=== PATIENT | female | born 1960 | race Caucasian/White ===

== ENCOUNTER → 2016-08-11 | Outpatient (CLI) | payer OTHER ==
--- NOTE | 2016-08-11 10:16 | BD ---
EXAMINATION TYPE: MG DEXA axial skeleton. DATE OF EXAM: 08/11/2016 9:27 AM COMPARISON: NONE CLINICAL HISTORY: Postmenopausal female with history of breast cancer. Height: 62 IN Weight: 174 LBS FRAX RISK QUESTIONS: Alcohol (3 or more units per day): NO Family History (Parent hip fracture): NO Glucocorticoids (More than 3mos): NO (Ex: prednisone, prednisolone, methylprednisolone, dexamethasone, and hydrocortisone). History of Fracture in Adulthood: NO Secondary Osteoporosis: 1. Type 1 Diabetes: NO 2. Hyperthyroidism: NO 3. Menopause before 45: AGE 45 4. Malnutrition: NO 5. Chronic liver disease: NO Rheumatoid Arthritis: NO Current Tobacco Use: NO RISK FACTORS HISTORY OF: History of Wrist Fracture: YES RT WRIST When: AGE 16 Active: YES Postmenopausal woman: AGE 45 MEDICATIONS: Thyroid Medications: YES Which medication: LEVOXYL How Lon+ YRS Additional Medications: CALCIUM, VIT D, SIMVASTATIN, DICLOFENAC, CENTRUM, SILVER, VIT B, COQ10, FISH OIL, ASPIRIN Additional History: BREAST CANCER and post menopausal female EXAM MEASUREMENTS: Bone mineral densitometry was performed using the [employer] System. Bone mineral density as measured about the Lumbar spine is: ----- L1-L4(G/cm2): 1.310 T Score Values are as follows: ----- L2: 1.2 ----- L3: 1.1 ----- L4: 1.5 ----- L1-L4: 1.1 Bone mineral density BASELINE Bone mineral density about the R hip (g/cm2): 1.020 Bone mineral density about the L hip (g/cm2): 1.063 T Score values are as follows: -----R Neck: -0.1 -----L Neck: 0.2 -----R Intertrochanter: 0.6 -----L Intertrochanter: 0.7 Bone mineral density BASELINE IMPRESSION: Normal (Values between +1 and -1 indicate normal bone mass) NOTE: T-SCORE=SD OF THE YOUNG ADULT MEAN.
== END | disposition home or self-care (01) ==
LOC: RADBDWWP 09:23
PROVIDERS: ATTEND Obstetrics & Gynecology
DX: N95.1 Menopausal and female climacteric states (principal)
CPT/HCPCS: 77080

== ENCOUNTER → 2018-02-07 | Outpatient (CLI) | payer OTHER ==
--- NOTE | 2018-02-07 19:58 | US ---
EXAMINATION TYPE: US venous doppler duplex LE LT DATE OF EXAM: 02/07/2018 6:41 PM COMPARISON: NONE CLINICAL HISTORY: I82.529 Chronic embolism and thrombosis. History of left leg DVT on aspirin. SIDE PERFORMED: Left TECHNIQUE: The lower extremity deep venous system is examined utilizing real time linear array sonog tiana with graded compression, doppler sonography and color-flow sonography. VESSELS IMAGED: External Iliac Vein (EIV) Common Femoral Vein Deep Femoral Vein Greater Saphenous Vein * Femoral Vein Popliteal Vein Small Saphenous Vein * Proximal Calf Veins (* superficial vessels Left Leg: Negative for DVT. Femoral Vein is compressible and good color flow seen compared to previo us exam on 02/10/2016. IMPRESSION: No evidence of deep venous thrombosis in the left leg.
== END | disposition home or self-care (01) ==
LOC: RADUSMAIN 18:00
PROVIDERS: ATTEND Internal Medicine Hematology & Oncology
DX: I82.529 Chronic embolism and thrombosis of unspecified iliac vein (principal); Z88.6 Allergy status to analgesic agent; Z91.040 Latex allergy status; Z88.5 Allergy status to narcotic agent; Z91.048 Other nonmedicinal substance allergy status

== ENCOUNTER 2018-07-19 09:05 | Inpatient (IN) | payer OTHER ==
[2018-07-19] MEDS ORDERED: SODIUM CHLORIDE 0.9% 1,000 ML IV STA (09:24)
[2018-07-19] MEDS ORDERED: ASPIRIN 81 MG PO STA (09:24)
[2018-07-19] MEDS ORDERED: NITROGLYCERIN SL TABS 0.4 MG TAB SUBLINGUAL STA (09:24)
--- NOTE | 2018-07-19 09:28 | ED ---
General Adult HPI - General Chief complaint: Chest Pain Stated complaint: chest pain/High BP Time Seen by Provider: 07/19/18 09:24 Source: patient, RN notes reviewed Mode of arrival: ambulatory Limitations: no limitations - History of Present Illness Initial comments: Patient 58-year-old female presenting to the emergency room today with a chief complaint of chest pain on and off over the past week. She does admit that she was having episodes that lasted just a few seconds. She states that yesterday it seemed to stay and not go away. She states that she feels a tightness and heaviness on her chest. She feels like it is like one of her grandchildren sitting on top of her. Patient does admit that when she was at work today when around corners she also felt a little lightheaded. Patient denies any other complaints or symptoms. She does admit to a history of hypertension and breast cancer in the past. Patient does admit that she had a blood clot in the left leg in the past was on blood thinners for several years but is currently no longer on them. No longer takes a daily aspirin. Patient denies any recent fever, chills, shortness of breath, back pain, abdominal pain, nausea or vomiting, numbness or tingling, headaches or visual changes, or any other complaints. - Related Data Home Medications Medication Instructions Recorded Confirmed Ubidecarenone [Co Q-10] 100 mg PO DAILY 05/16/14 07/19/18 Atenolol [Tenormin] 12.5 mg PO DAILY 05/17/14 07/19/18 Aspirin EC [Ecotrin Low Dose] 81 mg PO DAILY 07/19/18 07/19/18 Calcium Carbonate [Calcium] 1,200 mg PO DAILY 07/19/18 07/19/18 Diclofenac Sodium 50 mg PO DAILY 07/19/18 07/19/18 Levothyroxine Sodium [Levoxyl] 100 mcg PO DAILY 07/19/18 07/19/18 Multivitamins, Thera [Multivitamin 1 tab PO DAILY 07/19/18 07/19/18 (formulary)] [place]-3 Fatty Acids/Fish Oil [Fish 1 cap PO DAILY 07/19/18 07/19/18 Oil 1,000 mg Softgel] Simvastatin [Zocor] 20 mg PO HS 01/11/19 01/11/19 Allergies Allergy/AdvReac Type Severity Reaction Status Date / Time aspirin Allergy Abdominal Verified 07/19/18 09:12 Pain iodine Allergy Rash/Hives Verified 07/19/18 09:12 Latex, Natural Rubber Allergy Rash/Hives Verified 07/19/18 09:12 morphine Allergy Hallucinati Verified 07/19/18 09:12 ons hydromorphone HCl AdvReac Hallucinati Verified 07/19/18 09:12 [From Dilaudid] ons Review of Systems ROS Statement: Those systems with pertinent positive or pertinent negative responses have been documented in the HPI. ROS Other: All systems not noted in ROS Statement are negative. Past Medical History Past Medical History: Hyperlipidemia, Hypertension, Thyroid Disorder Additional Past Medical History / Comment(s): breast cancer History of Any Multi-Drug Resistant Organisms: None Reported Past Surgical History: Breast Surgery, Hysterectomy Additional Past Surgical History / Comment(s): Bilateral mastectomy Past Anesthesia/Blood Transfusion Reactions: Previous Problems w/ Anesthesia Additional Past Anesthesia/Blood Transfusion Reaction / Comment(s): Hallucinations Past Psychological History: No Psychological Hx Reported Smoking Status: Former smoker Past Alcohol Use History: Occasional Past Drug Use History: None Reported - Past Family History Mother Family Medical History: Cancer, Thyroid Disorder Father Family Medical History: Coronary Artery Disease (CAD), Diabetes Mellitus, Myocardial Infarction ([place]) General Exam - General Exam Comments Initial Comments: General: The patient is awake and alert, in no distress, and does not appear acutely ill. Eye: There is normal conjunctiva bilaterally. No signs of icterus. Ears, nose, mouth and throat: There are moist mucous membranes and no oral lesions. Neck: The neck is supple, there is no tenderness or JVD. Cardiovascular: There is a regular rate and rhythm. No murmur, rub or gallop is appreciated. Respiratory: Lungs are clear to auscultation, respirations are non-labored, breath sounds are equal. No wheezes, stridor, rales, or rhonchi. Gastrointestinal: Soft, non-distended, non-tender abdomen without masses or organomegaly noted. There is no rebound or guarding present. No CVA tenderness. Musculoskeletal: Normal ROM, no tenderness. Radial pulses equal bilaterally 2+ . Neurological: A&O x 3. CN II-XII intact, There are no obvious motor or sensory deficits. Coordination appears grossly intact. Speech is normal. Skin: Skin is warm and dry and no rashes or lesions are noted. Psychiatric: Cooperative, appropriate mood & affect, normal judgment. Limitations: no limitations Course Vital Signs 07/19/18 09:09 Temperature 97.9 F Pulse Rate 87 Respiratory 20 Rate Blood Pressure 169/89 O2 Sat by Pulse 99 Oximetry EKG Findings - EKG Comments: EKG Findings:: EKG performed at 0927: Shows normal sinus rhythm at 83 bpm. ID interval 140. QRS 86. QT/QTC 386/453. No acute ST changes. Medical Decision Making - Medical Decision Making Patient reexamined at this time shows no signs of distress. She does admit to improvement of her chest pain after nitro given here in emergency room. Her blood work was reviewed and negative cardiac enzymes. EKG showing no acute changes. Patient currently pain-free. D-dimer was elevated. CT of the chest was performed and does show some mild artifact limiting exam but shows possible left upper lobe PE. Patient has been started on high-dose heparin will be admitted with consult cardiology. - Lab Data Result diagrams: 07/19/18 09:35 07/19/18 09:35 Lab Results 07/19/18 07/19/18 07/19/18 Range/Units 09:35 09:35 09:35 WBC 6.7 (3.8-10.6) k/uL RBC 4.82 (3.80-5.40) m/uL Hgb 14.2 (11.4-16.0) gm/dL Hct 42.0 (34.0-46.0) % MCV 87.2 (80.0-100.0) fL MCH 29.4 (25.0-35.0) pg MCHC 33.7 (31.0-37.0) g/dL RDW 13.8 (11.5-15.5) % Plt Count 362 (150-450) k/uL Neutrophils % 57 % Lymphocytes % 33 % Monocytes % 5 % Eosinophils % 2 % Basophils % 1 % Neutrophils # 3.8 (1.3-7.7) k/uL Lymphocytes # 2.2 (1.0-4.8) k/uL Monocytes # 0.3 (0-1.0) k/uL Eosinophils # 0.1 (0-0.7) k/uL Basophils # 0.0 (0-0.2) k/uL PT (9.0-12.0) sec INR (<1.2) APTT (22.0-30.0) sec D-Dimer (<0.60) mg/L FEU Sodium 142 (137-145) mmol/L Potassium 4.5 (3.5-5.1) mmol/L Chloride 109 H (98-107) mmol/L Carbon Dioxide 23 (22-30) mmol/L Anion Gap 10 mmol/L BUN 19 H (7-17) mg/dL Creatinine 0.54 (0.52-1.04) mg/dL Est GFR (CKD-EPI)AfAm >90 (>60 ml/min/1.73 sqM) Est GFR (CKD-EPI)NonAf >90 (>60 ml/min/1.73 sqM) Glucose 129 H (74-99) mg/dL Calcium 9.5 (8.4-10.2) mg/dL Magnesium 2.1 (1.6-2.3) mg/dL Total Bilirubin 0.5 (0.2-1.3) mg/dL AST 40 H (14-36) U/L ALT 49 (9-52) U/L Alkaline Phosphatase 81 (38-126) U/L Total Creatine Kinase 241 H (30-135) U/L CK-MB (CK-2) 5.4 H (0.0-2.4) ng/mL CK-MB (CK-2) Rel Index 2.2 Troponin I <0.012 (0.000-0.034) ng/mL Total Protein 7.6 (6.3-8.2) g/dL Albumin 4.4 (3.5-5.0) g/dL 07/19/18 Range/Units 09:35 WBC (3.8-10.6) k/uL RBC (3.80-5.40) m/uL Hgb (11.4-16.0) gm/dL Hct (34.0-46.0) % MCV (80.0-100.0) fL MCH (25.0-35.0) pg MCHC (31.0-37.0) g/dL RDW (11.5-15.5) % Plt Count (150-450) k/uL Neutrophils % % Lymphocytes % % Monocytes % % Eosinophils % % Basophils % % Neutrophils # (1.3-7.7) k/uL Lymphocytes # (1.0-4.8) k/uL Monocytes # (0-1.0) k/uL Eosinophils # (0-0.7) k/uL Basophils # (0-0.2) k/uL PT 10.3 (9.0-12.0) sec INR 1.0 (<1.2) APTT 24.9 (22.0-30.0) sec D-Dimer 1.28 H (<0.60) mg/L FEU Sodium (137-145) mmol/L Potassium (3.5-5.1) mmol/L Chloride (98-107) mmol/L Carbon Dioxide (22-30) mmol/L Anion Gap mmol/L BUN (7-17) mg/dL Creatinine (0.52-1.04) mg/dL Est GFR (CKD-EPI)AfAm (>60 ml/min/1.73 sqM) Est GFR (CKD-EPI)NonAf (>60 ml/min/1.73 sqM) Glucose (74-99) mg/dL Calcium (8.4-10.2) mg/dL Magnesium (1.6-2.3) mg/dL Total Bilirubin (0.2-1.3) mg/dL AST (14-36) U/L ALT (9-52) U/L Alkaline Phosphatase (38-126) U/L Total Creatine Kinase (30-135) U/L CK-MB (CK-2) (0.0-2.4) ng/mL CK-MB (CK-2) Rel Index Troponin I (0.000-0.034) ng/mL Total Protein (6.3-8.2) g/dL Albumin (3.5-5.0) g/dL Disposition Clinical Impression: Pulmonary embolus, left, Chest pain Disposition: ADMITTED IP TO THIS HOSP Condition: Stable Referrals: Cleveland Lindo MD [Primary Care Provider] - 1-2 days Time of Disposition: 12:44
[2018-07-19 10:11] LABS: Basophils % (A) 1 %; Eosinophils # (A) 0.1 k/uL (0-0.7); Eosinophils % (A) 2 %; HGB 14.2 gm/dL (11.4-16.0); Lymphocytes # (A) 2.2 k/uL (1.0-4.8); Lymphocytes % (A) 33 %; MCH 29.4 pg (25.0-35.0); MCHC 33.7 g/dL (31.0-37.0); MCV 87.2 fL (80.0-100.0); Mean Platelet Volume 6.5; Monocytes # (A) 0.3 k/uL (0-1.0); Monocytes % (A) 5 %; Neutrophils # (A) 3.8 k/uL (1.3-7.7); Neutrophils % (A) 57 %; Platelet Count 362 k/uL (150-450); RBC 4.82 m/uL (3.80-5.40); RDW 13.8 % (11.5-15.5); WBC 6.7 k/uL (3.8-10.6)
--- NOTE | 2018-07-19 10:13 | XR ---
EXAMINATION TYPE: XR chest 2V DATE OF EXAM: 07/19/2018 COMPARISON: 05/26/2014 HISTORY: Chest pain TECHNIQUE: Frontal and lateral views of the chest are obtained. FINDINGS: Skin folds overlie the anterior chest. There is no focal air space opacity, pleural effusi on, or pneumothorax seen. The cardiac silhouette size is within normal limits. The osseous structu res are intact. Mild multilevel degenerative changes of the spine are seen. IMPRESSION: No acute cardiopulmonary process.
[2018-07-19 10:17] LABS: ALT 49 U/L (9-52); AST 40 U/L (14-36); Albumin 4.4 g/dL (3.5-5.0); Alkaline Phosphatase 81 U/L (38-126); Anion Gap 10 mmol/L; Blood Urea Nitrogen 19 mg/dL (7-17); Calcium 9.5 mg/dL (8.4-10.2); Carbon Dioxide 23 mmol/L (22-30); Chloride 109 mmol/L (98-107); Glucose 129 mg/dL (74-99); Magnesium 2.1 mg/dL (1.6-2.3); Potassium 4.5 mmol/L (3.5-5.1); Sodium 142 mmol/L (137-145); Total Bilirubin 0.5 mg/dL (0.2-1.3); Total Protein 7.6 g/dL (6.3-8.2)
[2018-07-19 10:31] LABS: Partial Thromboplastin Time 24.9 sec (22.0-30.0); Prothrombin Time 10.3 sec (9.0-12.0)
[2018-07-19 10:33] LABS: Creatine Kinase 241 U/L (30-135)
[2018-07-19 10:46] LABS: Creatine Kinase MB 5.4 ng/mL (0.0-2.4); Troponin I <0.012 ng/mL (0.000-0.034)
[2018-07-19 10:59] LABS: D-Dimer 1.28 mg/L FEU (<0.60)
[2018-07-19] MEDS ORDERED: methylPREDNISolone SOD SUCCI 125 MG/2 ML VIAL IV STA (11:08)
[2018-07-19] MEDS ORDERED: FAMOTIDINE 20 MG/2 ML VIAL IV STA (11:08)
[2018-07-19] MEDS ORDERED: diphenhydrAMINE 50 MG/ML 1 ML VIAL IVP STA (11:08)
--- NOTE | 2018-07-19 12:34 | CT ---
EXAMINATION TYPE: CT angio chest DATE OF EXAM: 07/19/2018 12:17 PM COMPARISON: Chest x-ray 07/19/2018, CT scan 05/16/2014 HISTORY: Chest pain, hypertension CT DLP: 352.5 mGycm Automated exposure control for dose reduction was used. CONTRAST: CTA scan of the thorax is performed with IV Contrast, patient injected with 100 mL of Isovue 370, pul monary embolism protocol. . 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 Correlate clinically. Pleural-based density pos teriorly in the right lower lobe and additional areas of pleural thickening noted. No consolidative p neumonia. No pleural effusion or pneumothorax. MEDIASTINUM: There is extensive streak artifact limiting assessment of the proximal aorta. Maximal di mension is 3.7 cm compatible with ectasia or minimal aneurysmal dilation. Assessment for dissection t his region is nondiagnostic. Descending thoracic aorta of normal caliber. There also is marked limitation of the right pulmonary artery due to severe streak artifact. There is a small area of reduced attenuation within a left upper lobe pulmonary artery branch. Could not excl ude a small pulmonary embolism. OTHER: A small hiatal hernia is present. The breast are not included in field of view. There is susp ected bilateral double mastectomy with interval removal of saline filled breast implants noted. Hyper trophic and degenerative change of the spine noted. There is a right adrenal nodule measuring 1.2 cm and 10 Hounsfield units likely the basis of an adenoma. IMPRESSION: 1. [place] limited exam due to extensive streak artifact. Could not exclude a small pulmonary embolism within the left upper lobe branch vessel seen on sagittal image 111. Correlate clinically 2. COPD as discussed above.
[2018-07-19] MEDS ORDERED: HEPARIN SODIUM,PORCINE 5,000 UNIT/ML 1 ML VIAL IV STA (12:51)
[2018-07-19] MEDS ORDERED: SODIUM CHLORIDE 0.9% 1,000 ML IV ONE (12:54)
[2018-07-19] MEDS ORDERED: NITROGLYCERIN SL TABS 0.4 MG TAB SUBLINGUAL PRN (12:54)
[2018-07-19] MEDS: HEPARIN SOD,PORK IN 0.45% NACL 25,000 UNIT in 0.45% NACL 1 250ML.BAG IV SCH (13:32)
[2018-07-19 15:44] LABS: Creatine Kinase 198 U/L (30-135)
[2018-07-19 15:57] LABS: Creatine Kinase MB 4.3 ng/mL (0.0-2.4); Troponin I <0.012 ng/mL (0.000-0.034)
[2018-07-19] MEDS ORDERED: ONDANSETRON 4 MG/2 ML VIAL IVP PRN (17:37)
[2018-07-19] MEDS ORDERED: ACETAMINOPHEN TAB 325 MG TAB PO PRN (17:37)
[2018-07-19] MEDS: ATENOLOL 12.5 MG TAB PO SCH (19:04)
[2018-07-19] MEDS: ATORVASTATIN 10 MG TAB PO SCH (20:08)
[2018-07-19] MEDS: ALBUTEROL NEBULIZED 2.5 MG/3 ML INHALATION SCH (20:11)
[2018-07-19 22:34] LABS: Creatine Kinase 169 U/L (30-135)
[2018-07-19 22:47] LABS: Creatine Kinase MB 3.3 ng/mL (0.0-2.4); Troponin I <0.012 ng/mL (0.000-0.034)
[2018-07-20 05:06] LABS: HCT 39.7 % (34.0-46.0); HGB 12.2 gm/dL (11.4-16.0); MCH 27.8 pg (25.0-35.0); MCHC 30.8 g/dL (31.0-37.0); MCV 90.1 fL (80.0-100.0); Mean Platelet Volume 5.9; Platelet Count 354 k/uL (150-450); RBC 4.41 m/uL (3.80-5.40); RDW 13.8 % (11.5-15.5); WBC 12.1 k/uL (3.8-10.6)
[2018-07-20] MEDS: HEPARIN SOD,PORK IN 0.45% NACL 25,000 UNIT in 0.45% NACL 1 250ML.BAG IV SCH ×2 (05:31→17:23)
[2018-07-20] MEDS: LEVOTHYROXINE 100 MCG TAB PO SCH (05:32)
[2018-07-20 05:45] LABS: Anion Gap 7 mmol/L; Blood Urea Nitrogen 17 mg/dL (7-17); Carbon Dioxide 21 mmol/L (22-30); Chloride 116 mmol/L (98-107); Cholesterol 161 mg/dL (<200); Glucose 138 mg/dL (74-99); HDL Cholesterol 62 mg/dL (40-60); LDL Cholesterol,Calculated 84 mg/dL (0-99); Potassium 4.4 mmol/L (3.5-5.1); Sodium 144 mmol/L (137-145); Triglycerides 73 mg/dL (<150)
[2018-07-20] MEDS: ALPRAZolam 0.25 MG TAB PO PRN ×2 (08:13→16:31)
[2018-07-20] MEDS: MULTIVITAMINS, THERA 1 EACH TAB PO SCH (08:13)
[2018-07-20] MEDS: ASPIRIN 81 MG PO SCH (08:13)
[2018-07-20] MEDS: ALBUTEROL NEBULIZED 2.5 MG/3 ML INHALATION SCH (08:32)
[2018-07-20] MEDS ORDERED: ASPIRIN 325 MG TAB PO SCH (09:00)
[2018-07-20] MEDS: ATENOLOL 12.5 MG TAB PO SCH (10:29)
--- NOTE | 2018-07-20 11:42 | P.HPIM ---
History of Present Illness 58-year-old the female came in because of crampy sensation in the chest and pressure-like sensation of the chest initially were only lasted for a few seconds as stated was continuous no diaphoresis denied any shortness of breath lightheadedness. Patient was dealing with upper respiratory infection for a few weeks after which patient was having pain in the because of excessive coughing. Patient's pain now doesn't appear to be pleuritic area patient does have history of DVT in the past at the time patient had mastectomy had history of breast cancer presently in remission. Anti-correlation was subsequently stopped. Patient denied any fever chills patient was a valid by cardiology for chest pain. Troponins were negative. Patient used to smoke in the 2006 doesn' t have any history of COPD patient is not wheezing at this time. Patient had a CAT scan of the chest which unfortunately was read as unable to rule out pulmonary embolism because of which patient was admitted with IV heparin. My suspicion is extremely low clinical suspicion is extremely low for pulmonary embolism same thing was discussed with the patient. I'll will get the opinion of pulmonology as well as did not believe patient has PE are at least of suspicion is low will not commit her to lifelong anticoagulation. Review of Systems REVIEW OF SYSTEMS: CONSTITUTIONAL: No fever, no malaise, no fatigue. HEENT: No recent visual problems or hearing problems. Denied any sore throat. CARDIOVASCULAR: No orthopnea, PND, no palpitations, no syncope. PULMONARY: No shortness of breath, no cough, no hemoptysis. GASTROINTESTINAL: No diarrhea, no nausea, no vomiting, no abdominal pain. NEUROLOGICAL: No headaches, no weakness, no numbness. HEMATOLOGICAL: Denies any bleeding or petechiae. GENITOURINARY: Denies any burning micturition, frequency, or urgency. MUSCULOSKELETAL/RHEUMATOLOGICAL: Denies any joint pain, swelling, or any muscle pain. ENDOCRINE: Denies any polyuria or polydipsia. The rest of the 14-point review of systems is negative. Past Medical History Past Medical History: Deep Vein Thrombosis (DVT), Hyperlipidemia, Hypertension, Osteoarthritis (OA), Thyroid Disorder Additional Past Medical History / Comment(s): R breast cancer with bilateral mastectomy/failed reconstruction, DVT L leg (while on tamoxifen), hypothyroid History of Any Multi-Drug Resistant Organisms: None Reported Past Surgical History: Breast Surgery, Hysterectomy Additional Past Surgical History / Comment(s): Bilateral mastectomy with multiple reconstruction surgeries-failed, ovarian cystectomy, D&C, colonoscopy. Past Anesthesia/Blood Transfusion Reactions: Previous Problems w/ Anesthesia Additional Past Anesthesia/Blood Transfusion Reaction / Comment(s): Hallucinations Smoking Status: Former smoker - Past Family History Mother Family Medical History: Cancer, Thyroid Disorder Additional Family Medical History / Comment(s): Mother had breast cancer and thyroid disease. She is 80yrs old. Father Family Medical History: Coronary Artery Disease (CAD), Diabetes Mellitus, Myocardial Infarction (MD) Additional Family Medical History / Comment(s): Father of a MD at the age of 52 yrs. Medications and Allergies Home Medications Medication Instructions Recorded Confirmed Type Ubidecarenone [Co Q-10] 100 mg PO DAILY 05/16/14 07/19/18 History Atenolol [Tenormin] 12.5 mg PO DAILY 05/17/14 07/19/18 History Aspirin EC [Ecotrin Low Dose] 81 mg PO DAILY 07/19/18 07/19/18 History Calcium Carbonate [Calcium] 1,200 mg PO DAILY 07/19/18 07/19/18 History Diclofenac Sodium 50 mg PO DAILY 07/19/18 07/19/18 History Levothyroxine Sodium [Levoxyl] 100 mcg PO DAILY 07/19/18 07/19/18 History Multivitamins, Thera [Multivitamin 1 tab PO DAILY 07/19/18 07/19/18 History (formulary)] [place]-3 Fatty Acids/Fish Oil [Fish 1 cap PO DAILY 07/19/18 07/19/18 History Oil 1,000 mg Softgel] Simvastatin [Zocor] 20 mg PO HS 07/19/18 07/19/18 History Allergies Allergy/AdvReac Type Severity Reaction Status Date / Time iodine Allergy Rash/Hives Verified 07/19/18 09:12 Latex, Natural Rubber Allergy Rash/Hives Verified 07/19/18 09:12 morphine Allergy Hallucinati Verified 07/19/18 09:12 ons aspirin AdvReac Abdominal Verified 07/19/18 17:35 Pain hydromorphone HCl AdvReac Hallucinati Verified 07/19/18 09:12 [From Dilaudid] ons Physical Exam Vitals: Vital Signs Temp Pulse Pulse Resp BP BP Pulse Ox 07/20/18 08:44 100 07/20/18 08:32 96 07/20/18 08:00 98.2 F 89 17 124/78 94 L 07/20/18 03:59 97.9 F 84 18 109/64 93 L 07/20/18 00:00 96.9 F L 86 18 115/62 91 L 07/19/18 20:25 100 97 07/19/18 20:16 98 07/19/18 20:00 96.9 F L 112 H 18 132/71 93 L 07/19/18 16:00 95 17 07/19/18 14:36 98.4 F 95 17 135/77 95 07/19/18 14:29 94 L 07/19/18 13:45 90 18 134/81 98 07/19/18 12:00 97 18 137/79 Intake and Output 07/19/18 07/20/18 07/20/18 22:59 06:59 14:59 Intake Total 366.856 92.718 260 Output Total 0 Balance 366.856 92.718 260 Intake: Intake, IV Titration 126.856 92.718 Amount Heparin Sod,Pork in 0.45% 126.856 92.718 NaCl 25,000 unit In 0.45 % NaCl 1 250ml.bag @ 18 UNITS/KG/HR 16.16 mls/hr IV .[id number] [facility] Rx#: [id number] Oral 240 260 Output: Urine 0 Other: Voiding Method Bedpan Bedpan Bedpan # Voids 0 PHYSICAL EXAMINATION: GENERAL: The patient is alert and oriented x3, not in any acute distress. Well developed, well nourished. HEENT: Pupils are round and equally reacting to light. EOMI. No scleral icterus. No conjunctival pallor. Normocephalic, atraumatic. No pharyngeal erythema. No thyromegaly. CARDIOVASCULAR: S1 and S2 present. No murmurs, rubs, or gallops. PULMONARY: Chest is clear to auscultation, no wheezing or crackles. ABDOMEN: Soft, nontender, nondistended, normoactive bowel sounds. No palpable organomegaly. MUSCULOSKELETAL: No joint swelling or deformity. EXTREMITIES: No cyanosis, clubbing, or pedal edema. NEUROLOGICAL: Gross neurological examination did not reveal any focal deficits. SKIN: No rashes. Results CBC & Chem 7: 07/20/18 04:43 07/20/18 04:43 Labs: Abnormal Lab Results - Last 24 Hours (Table) 07/19/18 07/19/18 07/19/18 Range/Units 15:18 19:44 21:40 WBC (3.8-10.6) k/uL MCHC (31.0-37.0) g/dL APTT 169.3 H* (22.0-30.0) sec Chloride (98-107) mmol/L Carbon Dioxide (22-30) mmol/L Creatinine (0.52-1.04) mg/dL Glucose (74-99) mg/dL Total Creatine Kinase 198 H 169 H (30-135) U/L CK-MB (CK-2) 4.3 H 3.3 H (0.0-2.4) ng/mL HDL Cholesterol (40-60) mg/dL 07/20/18 07/20/18 07/20/18 Range/Units 04:43 04:43 04:43 WBC 12.1 H (3.8-10.6) k/uL MCHC 30.8 L (31.0-37.0) g/dL APTT 74.1 H (22.0-30.0) sec Chloride 116 H (98-107) mmol/L Carbon Dioxide 21 L (22-30) mmol/L Creatinine 0.51 L (0.52-1.04) mg/dL Glucose 138 H (74-99) mg/dL Total Creatine Kinase (30-135) U/L CK-MB (CK-2) (0.0-2.4) ng/mL HDL Cholesterol 62 H (40-60) mg/dL Thrombosis Risk Factor Assmnt - Choose All That Apply Any of the Below Risk Factors Present?: Yes Each Factor Represents 1 point: Age 41-60 years, Obesity (BMI >25) Other Risk Factors: Yes Each Risk Factor Represents 2 Points: Malignancy Each Risk Factor Represents 3 Points: History of DVT/PE Other congenital or acquired thrombophilia - If yes, enter type in comment: No Thrombosis Risk Factor Assessment Total Risk Factor Score: 7 Thrombosis Risk Factor Assessment Level: High Risk Assessment and Plan Plan: 1 chest pain: Appears to mostly [place] skeletal will rule out acute coronary syndromes. My clinical suspicion is low for pulmonary embolism. 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
--- NOTE | 2018-07-20 13:14 | P.CRDCN ---
History of Present Illness History of present illness: This is a pleasant 58-year-old female past medical history significant for breast cancer status post bilateral mastectomy, hypertension, dyslipidemia, history of DVT in the left leg while on tamoxifen and hypothyroidism. She denies history of coronary artery disease or diabetes mellitus. She has never undergone cardiac catheterization. We have been asked to see her in consultation secondary to chest discomfort. She has been feeling very vague nonspecific tightening sensation in her chest feels Associates having a contraction throughout her entire chest and everything as squeezing into the middle. The symptoms have been going on for the previous week and have been intermittent and mostly at rest and are associated with very mild shortness of breath. She denies any radiation of pain to the arm, back, neck or jaw. She denies associated dizziness, palpitations or diaphoresis. Yesterday she again had a similar type pain except it seemed to come and go very frequently throughout the day. For this reason she came to the hospital for further evaluation. CT a chest reveals a possible pulmonary embolism within the left upper lobe and COPD. She states she had been maintained on Xarelto after having her DVT in 2014 for 2 years and had followed with Dr. morrow. Just recently approximately one month ago he recommended she could cut her aspirin down from 325 mg daily to 81 mg daily. EKG reveals sinus mechanism with no acute ST or T wave abnormalities noted. Chest x-ray is negative for an acute cardiopulmonary process. Laboratory data reviewed, WBC 12.1, hemoglobin 12.2, platelets 354, d-dimer 1.28 , sodium 144, potassium 4.4, creatinine 0.51, magnesium 2.1, cardiac enzymes negative 3, LDL 84 and HDL 62. Current cardiac medications include aspirin 81 mg daily, atenolol 12.5 mg daily and simvastatin 20 mg daily. At the time of my exam: CONSTITUTIONAL: Denies fever. Denies chills. EYES: Denies blurred vision. Denies vision changes. Denies eye pain. EARS, NOSE, MOUTH & THROAT: Denies headache. Denies sore throat. Denies ear pain. CARDIOVASCULAR: Denies chest pain. Denies shortness of breath. Denies orthopnea. Denies PND. Denies palpitations. RESPIRATORY: Denies cough. GASTROINTESTINAL: Denies abdominal pain. Denies diarrhea. Denies constipation. Denies nausea. Denies vomiting. MUSCULOSKELETAL: Denies myalgias. INTEGUMENTARY: Denies pruitis. Denies rash. NEUROLOGIC: Denies numbness. Denies tingling. Denies weakness. PSYCHIATRIC: Denies anxiety. Denies depression. ENDOCRINE: Denies fatigue. Denies weight change. Denies polydipsia. Denies polyurina. GENITOURINARY: Denies burning, hematuria or urgency with micturation. HEMATOLOGIC: Denies history of anemia. Denies bleeding. Blood pressure 124/78 heart rate 89 afebrile maintaining oxygen saturation on room air GENERAL: This is a 58-year-old female in no apparent distress at the time of my examination. HEENT: Head is atraumatic, normocephalic. Pupils are equal, round. Sclerae anicteric. Conjunctivae are clear. Mucous membranes of the mouth are moist. Neck is supple. There is no jugular venous distention. No carotid bruit is heard. LUNGS: Clear to auscultation no wheezes, rales or rhonchi. No chest wall tenderness is noted on palpation or with deep breathing. HEART: Regular rate and rhythm without murmurs, rubs or gallops. S1 and S2 heard. ABDOMEN: Soft, nontender. Bowel sounds are heard. No organomegaly noted. EXTREMITIES: No evidence of peripheral edema and no calf tenderness noted. VASCULAR: Radial and dorsalis pedis pulses palpated, no evidence of clubbing. NEUROLOGIC: Patient is awake, alert and oriented x3. ASSESSMENT Acute pulmonary embolism in a patient with history of coagulopathy in the past Pleuritic chest pain Hypertension Dyslipidemia History of DVT in the past had been on long-term anticoagulation for 2 years, recently transitioned to aspirin 81 mg daily per hematology one month ago History of breast cancer status post bilateral mastectomy PLAN Obtain 2-D echocardiogram and Doppler study to assess cardiac structure and function. Continue heparin infusion pending echocardiogram findings. Will resume Xarelto thereafter. Thank you kindly for this consultation. We will continue to follow and make recommendations accordingly. The above impression and plan of care have been discussed and directed by the signing physician. Rebecca Mcnamara, nurse practitioner, acting as scribe for signing physician. Past Medical History Past Medical History: Deep Vein Thrombosis (DVT), Hyperlipidemia, Hypertension, Osteoarthritis (OA), Thyroid Disorder Additional Past Medical History / Comment(s): R breast cancer with bilateral mastectomy/failed reconstruction, DVT L leg (while on tamoxifen), hypothyroid History of Any Multi-Drug Resistant Organisms: None Reported Past Surgical History: Breast Surgery, Hysterectomy Additional Past Surgical History / Comment(s): Bilateral mastectomy with multiple reconstruction surgeries-failed, ovarian cystectomy, D&C, colonoscopy. Past Anesthesia/Blood Transfusion Reactions: Previous Problems w/ Anesthesia Additional Past Anesthesia/Blood Transfusion Reaction / Comment(s): Hallucinations Smoking Status: Former smoker - Past Family History Mother Family Medical History: Cancer, Thyroid Disorder Additional Family Medical History / Comment(s): Mother had breast cancer and thyroid disease. She is 80yrs old. Father Family Medical History: Coronary Artery Disease (CAD), Diabetes Mellitus, Myocardial Infarction (DE) Additional Family Medical History / Comment(s): Father of a DE at the age of 52 yrs. Medications and Allergies Home Medications Medication Instructions Recorded Confirmed Type Ubidecarenone [Co Q-10] 100 mg PO DAILY 05/16/14 07/19/18 History Atenolol [Tenormin] 12.5 mg PO DAILY 05/17/14 07/19/18 History Aspirin EC [Ecotrin Low Dose] 81 mg PO DAILY 07/19/18 07/19/18 History Calcium Carbonate [Calcium] 1,200 mg PO DAILY 07/19/18 07/19/18 History Diclofenac Sodium 50 mg PO DAILY 07/19/18 07/19/18 History Levothyroxine Sodium [Levoxyl] 100 mcg PO DAILY 07/19/18 07/19/18 History Multivitamins, Thera [Multivitamin 1 tab PO DAILY 07/19/18 07/19/18 History (formulary)] [place]-3 Fatty Acids/Fish Oil [Fish 1 cap PO DAILY 07/19/18 07/19/18 History Oil 1,000 mg Softgel] Simvastatin [Zocor] 20 mg PO HS 07/19/18 07/19/18 History Allergies Allergy/AdvReac Type Severity Reaction Status Date / Time iodine Allergy Rash/Hives Verified 07/19/18 09:12 Latex, Natural Rubber Allergy Rash/Hives Verified 07/19/18 09:12 morphine Allergy Hallucinati Verified 07/19/18 09:12 ons aspirin AdvReac Abdominal Verified 07/19/18 17:35 Pain hydromorphone HCl AdvReac Hallucinati Verified 07/19/18 09:12 [From Dilaudid] ons Physical Exam Vitals: Vital Signs Temp Pulse Pulse Resp BP BP Pulse Ox 07/20/18 08:44 100 07/20/18 08:32 96 07/20/18 08:00 98.2 F 89 17 124/78 94 L 07/20/18 03:59 97.9 F 84 18 109/64 93 L 07/20/18 00:00 96.9 F L 86 18 115/62 91 L 07/19/18 20:25 100 97 07/19/18 20:16 98 07/19/18 20:00 96.9 F L 112 H 18 132/71 93 L 07/19/18 16:00 95 17 07/19/18 14:36 98.4 F 95 17 135/77 95 07/19/18 14:29 94 L 07/19/18 13:45 90 18 134/81 98 Intake and Output 07/19/18 07/20/18 07/20/18 22:59 06:59 14:59 Intake Total 366.856 92.718 260 Output Total 0 Balance 366.856 92.718 260 Intake: Intake, IV Titration 126.856 92.718 Amount Heparin Sod,Pork in 0.45% 126.856 92.718 NaCl 25,000 unit In 0.45 % NaCl 1 250ml.bag @ 18 UNITS/KG/HR 16.16 mls/hr IV [id number] [facility] Rx#: [id number] Oral 240 260 Output: Urine 0 Other: Voiding Method Bedpan Bedpan Bedpan # Voids 0 Results 07/20/18 04:43 07/20/18 04:43 Cardiac Enzymes 07/19/18 07/19/18 Range/Units 15:18 21:40 CK-MB (CK-2) 4.3 H 3.3 H (0.0-2.4) ng/mL Troponin I <0.012 <0.012 (0.000-0.034) ng/mL Coagulation 07/19/18 07/20/18 Range/Units 19:44 04:43 APTT 169.3 H* 74.1 H (22.0-30.0) sec Lipids 07/20/18 Range/Units 04:43 Triglycerides 73 (<150) mg/dL Cholesterol 161 (<200) mg/dL HDL Cholesterol 62 H (40-60) mg/dL CBC 07/20/18 Range/Units 04:43 WBC 12.1 H (3.8-10.6) k/uL RBC 4.41 (3.80-5.40) m/uL Hgb 12.2 (11.4-16.0) gm/dL Hct 39.7 (34.0-46.0) % Plt Count 354 (150-450) k/uL Comprehensive Metabolic Panel 07/20/18 Range/Units 04:43 Sodium 144 (137-145) mmol/L Potassium 4.4 (3.5-5.1) mmol/L Chloride 116 H (98-107) mmol/L Carbon Dioxide 21 L (22-30) mmol/L BUN 17 (7-17) mg/dL Creatinine 0.51 L (0.52-1.04) mg/dL Glucose 138 H (74-99) mg/dL Calcium 9.0 (8.4-10.2) mg/dL Current Medications Generic Name Dose Route Start Last Admin Trade Name Freq PRN Reason Stop Dose Admin Acetaminophen 650 mg 07/19/18 17:37 Tylenol Tab PO Q6HR PRN Fever and/ or Pain Alprazolam 0.25 mg 07/20/18 07:57 07/20/18 08:13 Xanax PO 0.25 mg TID PRN Administration Anxiety Aspirin 81 mg 07/20/18 09:00 07/20/18 08:13 Aspirin PO 81 mg DAILY SUNDAY Administration Atenolol 12.5 mg 07/20/18 21:00 Tenormin PO DAILY [facility] Atorvastatin Calcium 10 mg 07/19/18 21:00 07/19/18 20:08 Lipitor PO 10 mg HS SUNDAY Administration Heparin Sodium/Sodium Chloride 250 mls @ 16.16 mls/hr 07/19/18 13:00 05:31 25,000 unit/ Sodium Chloride IV Not Given .[id number] [facility] Protocol 18 UNITS/KG/HR Levothyroxine Sodium 100 mcg 07/20/18 06:30 07/20/18 05:32 Synthroid PO 100 mcg DAILY@0630 SUNDAY Administration Multivitamins 1 each 07/20/18 09:00 07/20/18 08:13 Theragran PO 1 each DAILY SUNDAY Administration Nitroglycerin 0.4 mg 07/19/18 12:54 Nitrostat SUBLINGUAL Q5M PRN Chest Pain Ondansetron HCl 4 mg 07/19/18 17:37 Zofran IVP Q6HR PRN Nausea And Vomiting Intake and Output 07/19/18 07/20/18 07/20/18 22:59 06:59 14:59 Intake Total 366.856 92.718 260 Output Total 0 Balance 366.856 92.718 260 Intake: Intake, IV Titration 126.856 92.718 Amount Heparin Sod,Pork in 0.45% 126.856 92.718 NaCl 25,000 unit In 0.45 % NaCl 1 250ml.bag @ 18 UNITS/KG/HR 16.16 mls/hr IV .[id number] [facility] Rx#: [id number] Oral 240 260 Output: Urine 0 Other: Voiding Method Bedpan Bedpan Bedpan # Voids 0 07/20/18 04:43 07/20/18 04:43
--- NOTE | 2018-07-20 14:24 | CONS ---
CONSULTATION PULMONARY CRITICAL CARE CONSULTATION: REASON: Chest pain, rule out PE. 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 She states that beginning in early June, she came down with what sounds like an upper respiratory tract infection. She had nasal congestion and drainage, it seemed to settle in her chest and she developed a lower respiratory tract infection/acute bronchitis. At that time, her complaints included a very harsh cough. She was also coughing up some phlegm. Maybe a bit shortness of breath. No fever, chills. Not coughing up any blood. She apparently had a Z-Dominick at home and she took it. Meds only helped a bit. Subsequent to that, she took some [id number] medications. She developed a significant cough at that point, and the patient was having pain in the chest when she coughed. She describes pain to both the right and left chest. They were sharp in nature. More recently, she presented to the emergency room on July 19 with chest pain. It was felt like a tingly sensation in the center of her chest. It did not radiate. She was not having any fever or chills. She was not really short of breath. She was not coughing up any phlegm. The patient states that she is feeling better now. She was seen in the emergency room and she was thought to possibly have a pulmonary embolism and for that reason, the patient was started on IV heparin and admitted. She had a CT angiogram in the ER, which suggested a "can't rule out PE in the left upper lobe pulmonary artery." Anyway, the patient does have a previous history of breast cancer back in 2006. At that time, she opted for bilateral mastectomy. She also at that time apparently had extensive clot in the left leg. She was placed on blood thinners and took Xarelto for a couple years at which time, Dr. Pimentel, the oncologist/data operations leader told her to stop Xarelto and just take an aspirin a day. She denies any recent long trips such as train rides, boat rids, car rides or plane rides. She is pretty active. Again, she works in a dental office. No history of any lung issues. MEDICATIONS: Include coenzyme Q, Tenormin, aspirin, calcium, diclofenac, levothyroxine, multivitamins, omega-3 fatty acids, Zocor. . ALLERGIES: Include ASPIRIN, IODINE, LATEX, MORPHINE, and DILAUDID. PAST MEDICAL HISTORY: Positive for hyperlipidemia, hypertension, hypothyroidism, breast cancer with previous double mastectomy and previous history of extensive DVT to the left leg requiring 2 years of blood thinners. . SURGICAL HISTORY: Includes hysterectomy. SOCIAL HISTORY: Positive for about 30 years of tobacco use. She quit some 11 or 12 years ago when she was initially diagnosed with breast cancer. She smoked about a pack a day. Admits to occasional alcohol use. No illicit drug use. FAMILY HISTORY: Positive for myocardial infarction, diabetes, and coronary artery disease. REVIEW OF SYSTEMS: CONSTITUTIONAL: Negative. NEUROLOGIC: Negative. HEENT: Negative. CARDIOVASCULAR: Chest pain. PULMONARY: Negative. GI/: Negative. RHEUMATOLOGIC: Negative. IMMUNOLOGIC: Negative. ENDOCRINOLOGIC: Negative. DERMATOLOGIC: Negative. Current vital signs are reviewed. Her temperature is 98.2, heart rate 89, respiratory rate 17, blood pressure 124/70 mean 93, room air saturation 94%. She appears in no distress. HEENT examination is grossly unremarkable. Mucous membranes are moist. Neck is supple. Full range of motion. No adenopathy or thyromegaly. Neck veins are flat. Cardiovascular examination reveals regular rhythm rate. Heart rate 88, S1, S2 normal. No S3, S4, or murmur. LUNGS: Clear. Breath sounds equal. No wheezes, rhonchi , or crackles. ABDOMEN: Soft. Bowel sounds are heard. Extremities are intact. No cyanosis, clubbing, or edema. Skin without rash. Neurologic examination is brief but nonfocal. The patient had a chest x-ray on the . It is completely normal. She had a CT angiogram of the chest also on the which was interpreted by the radiologist as "could not exclude a small pulmonary embolism within the left upper lobe vessel". LABS: Reviewed. White count 12.1, hemoglobin 12.2, hematocrit 39.7, platelet count 354 1000. PTT 74.1. D-dimer is 1.28. Sodium, potassium normal chloride 116, CO2 21, anion gap 7, BUN and creatinine were 17 and 0.51. The rest of the labs look pretty good. CK is look good. Troponins were negative x3. The current medications are reviewed. ASSESSMENT: 1. Doubt pulmonary embolism based on the patient's clinical story and picture. 2. Recent upper respiratory tract infection/acute bronchitis, resolved. 3. Chest pain, thought to be noncardiac and mostly related to significant paroxysms of cough. 4. No current evidence of chronic obstructive pulmonary disease. 5. Possible underlying chronic lung disease problem from previous tobacco use. 6. Hypothyroidism. 7. Hypertension. 8. Hyperlipidemia. 9. History of breast cancer, status post bilateral mastectomy. 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 PLAN The patient will have a V/Q scan ordered. The chest x-ray is normal. The V/Q scan should be helpful in helping to either rule in or rule out a PE. If that is nondiagnostic, I may scan the legs. Additional recommendations and suggestions are forthcoming. I strongly suspect that she did not have a PE. As a last resort, the patient could have a follow up CT angiogram. I would wait a day or so before I do that. No additional recommendations are made. Prognosis is generally thought to be good. MMODL / IJN: [id number] / MTDD
--- NOTE | 2018-07-20 15:51 | NM ---
EXAMINATION TYPE: NM pul vent and perfuse DATE OF EXAM: 07/20/2018 COMPARISON: CT and plain film chest chest 07/19/2018 HISTORY: Difficulty breathing Chest pain TECHNIQUE: Utilizing inhalation of 31.5 mCi Tc 99m DTPA aerosol and intravenous injection of 5.06 mC i of Tc 99m MAA, ventilation and perfusion images are acquired post injection in multiple projections . FINDINGS: Normal radiotracer distribution is noted in the lungs. There is no evidence of mismatched defects. IMPRESSION: Low probability of pulmonary embolism.
[2018-07-20] MEDS: ATORVASTATIN 10 MG TAB PO SCH (20:52)
[2018-07-20] MEDS ORDERED: ATENOLOL 12.5 MG TAB PO SCH (21:00)
[2018-07-21] MEDS: LEVOTHYROXINE 100 MCG TAB PO SCH (06:33)
[2018-07-21] MEDS: ASPIRIN 81 MG PO SCH (08:28)
[2018-07-21] MEDS: MULTIVITAMINS, THERA 1 EACH TAB PO SCH (08:28)
[2018-07-21 08:32] VITALS: BP 131/75; PULSE 82; RESP 17; TEMP 98.2
[2018-07-21 08:36] LABS: Basophils # (A) 0.1 k/uL (0-0.2); Basophils % (A) 1 %; Eosinophils # (A) 0.3 k/uL (0-0.7); Eosinophils % (A) 3 %; HCT 39.9 % (34.0-46.0); HGB 12.2 gm/dL (11.4-16.0); Hypochromasia Slight; Lymphocytes # (A) 4.7 k/uL (1.0-4.8); Lymphocytes % (A) 45 %; MCH 28.1 pg (25.0-35.0); MCHC 30.7 g/dL (31.0-37.0); MCV 91.5 fL (80.0-100.0); Mean Platelet Volume 6.3; Monocytes # (A) 0.6 k/uL (0-1.0); Monocytes % (A) 6 %; Neutrophils # (A) 4.6 k/uL (1.3-7.7); Neutrophils % (A) 44 %; Platelet Count 319 k/uL (150-450); RBC 4.36 m/uL (3.80-5.40); RDW 14.1 % (11.5-15.5); WBC 10.5 k/uL (3.8-10.6)
[2018-07-21 08:40] LABS: Anion Gap 6 mmol/L; Blood Urea Nitrogen 17 mg/dL (7-17); Calcium 8.4 mg/dL (8.4-10.2); Carbon Dioxide 22 mmol/L (22-30); Chloride 115 mmol/L (98-107); Glucose 106 mg/dL (74-99); Potassium 4.4 mmol/L (3.5-5.1); Sodium 143 mmol/L (137-145)
--- NOTE | 2018-07-21 09:56 | ECHOF ---
Referral Reason:sob, PE MEASUREMENTS -------- HEIGHT: 157.5 cm WEIGHT: 89.8 kg BP: 124/78 RVIDd: 3.1 cm (< 3.3) IVSd: 1.1 cm (0.6 - 1.1) LVIDd: 3.3 cm (3.9 - 5.3) LVPWd: 1.1 cm (0.6 - 1.1) IVSs: 1.4 cm LVIDs: 2.3 cm LVPWs: 1.6 cm LA Diam: 2.7 cm (2.7 - 3.8) LAESV Index (A-L): 17.70 ml/m Ao Diam: 3.5 cm (2.0 - 3.7) AV Cusp: 2.3 cm (1.5 - 2.6) MV EXCURSION: 11.236 mm (> 18.000) MV EF SLOPE: 95 mm/s (70 - 150) EPSS: 0.6 cm MV E Valentin: 0.82 m/s MV DecT: 222 ms MV A Valentin: 0.95 m/s MV E/A Ratio: 0.86 AR PHT: 634 ms RAP: 5.00 mmHg RVSP: 27.04 mmHg FINDINGS -------- Sinus rhythm. This was a technically adequate study. The left ventricular size is normal. There is borderline concentric left ventricular hypertrophy. Overall left ventricular systolic function is normal with, an EF between 60 - 65 %. The right ventricle is normal in size. Normal LA size by volume 22+/-6 ml/m2. The right atrium is normal in size. Trace to mild aortic regurgitation. The aortic pressure half-time by doppler is 634ms. There is trace mitral regurgitation. Mild tricuspid regurgitation present. Right ventricular systolic pressure is normal at < 35 mmHg. The right ventricular systolic pressure, as measured by Doppler, is 27.04mmHg. Trace/mild (physiologic) pulmonic regurgitation. The aortic root size is normal. Normal inferior vena cava with normal inspiratory collapse consistent with estimated right atrial pre ssure of 5 mmHg. There is no pericardial effusion. CONCLUSIONS -------- 1. Sinus rhythm. 2. This was a technically adequate study. 3. The left ventricular size is normal. 4. There is borderline concentric left ventricular hypertrophy. 5. Overall left ventricular systolic function is normal with, an EF between 60 - 65 %. 6. The right ventricle is normal in size. 7. Normal LA size by volume 22+/-6 ml/m2. 8. The right atrium is normal in size. 9. Trace to mild aortic regurgitation. 10. The aortic pressure half-time by doppler is 634ms. 11. There is trace mitral regurgitation. 12. Mild tricuspid regurgitation present. 13. Right ventricular systolic pressure is normal at < 35 mmHg. 14. The right ventricular systolic pressure, as measured by Doppler, is 27.04mmHg. 15. Trace/mild (physiologic) pulmonic regurgitation. 16. The aortic root size is normal. 17. Normal inferior vena cava with normal inspiratory collapse consistent with estimated right atrial pressure of 5 mmHg. 18. There is no pericardial effusion. ENROLLMENT MANAGEMENT MANAGER: Alana Quiñones RDCS
--- NOTE | 2018-07-21 11:25 | PN ---
PROGRESS NOTE Laly is a 58-year-old lady with history of hypothyroidism, breast cancer, prior history of DVT of the left leg, who presented to hospital complaining of chest discomfort and this is associated with elevated blood pressures. She has been under significant stress of late. Her CT scan of the chest could not rule out small pulmonary embolism in the left upper lobe secondary to significant trach artifact. An echocardiogram showed normal LV function. The right ventricle is not enlarged. The patient went on to have a V/Q scan that came back as low probability. Given these symptoms that are not consistent with a diagnosis of pulmonary embolism, a CAT scan that is non definitive and V/Q scan that was low probability, I believe the patient does not have pulmonary embolism and I am going to stop the IV heparin at this time. The patient has atypical chest pain, which could be related to anxiety and I am going to obtain an outpatient stress test on her to rule out ischemic heart disease. EXAM: She is comfortable at rest. Vital signs are stable. There is no jugular venous distention. Chest exam reveals good air entry bilaterally. Heart exam reveals first and second heart sounds. No gallop. No murmur. No rub. Abdomen is soft, nontender. Exam of extremities did not reveal any edema. Peripheral pulses are felt. ASSESSMENT: 1. Atypical chest pain could be related to anxiety. 2. Elevated D-dimer with negative workup for pulmonary embolism with a low probability V/Q scan. PLAN: Patient can be discharged home and I will perform an outpatient stress test on her. MMODL / IJN: [id number] /
--- NOTE | 2018-07-21 13:56 | P.DS ---
Providers Date of admission: 07/19/18 12:51 Attending physician: Cleveland Lindo Consults: 07/19/18 12:54 Consult Physician Stat Consulting Provider: [facility] Consult Reason/Comments: Chest pain Do you want consulting provider notified?: Yes 07/20/18 10:04 Consult Physician Routine Consulting Provider: Panchito Hurt Consult Reason/Comments: R/O PE Do you want consulting provider notified?: Yes Primary care physician: Cleveland Lindo [facility] Hospital Course: 58-year-old the female came in because of crampy sensation in the chest and pressure-like sensation of the chest initially were only lasted for a few seconds as stated was continuous no diaphoresis denied any shortness of breath lightheadedness. Patient was dealing with upper respiratory infection for a few weeks after which patient was having pain in the because of excessive coughing. Patient's pain now doesn't appear to be pleuritic area patient does have history of DVT in the past at the time patient had mastectomy had history of breast cancer presently in remission. Anti-correlation was subsequently stopped. Patient denied any fever chills patient was a valid by cardiology for chest pain. Troponins were negative. Patient used to smoke in the 2006 doesn' t have any history of COPD patient is not wheezing at this time. Patient had a CAT scan of the chest which unfortunately was read as unable to rule out pulmonary embolism because of which patient was admitted with IV heparin. My suspicion is extremely low clinical suspicion is extremely low for pulmonary embolism same thing was discussed with the patient. I'll will get the opinion of pulmonology as well as did not believe patient has PE are at least of suspicion is low will not commit her to lifelong anticoagulation. 07/21/2018 Patient patient had a VQ scan which showed low probability clinically patient does not appear to have any PE will not be discharged on anticoagulation patient appears to have urinary symptoms leading to muscular skeletal pain. Patient has anxiety as as well. Patient was a valid by cardiology the recommending outpatient stress test no further intervention at this point of time patient will be discharged today. PHYSICAL EXAMINATION: GENERAL: The patient is alert and oriented x3, not in any acute distress. Well developed, well nourished. HEENT: Pupils are round and equally reacting to light. EOMI. No scleral icterus. No conjunctival pallor. Normocephalic, atraumatic. No pharyngeal erythema. No thyromegaly. CARDIOVASCULAR: S1 and S2 present. No murmurs, rubs, or gallops. PULMONARY: Chest is clear to auscultation, no wheezing or crackles. ABDOMEN: Soft, nontender, nondistended, normoactive bowel sounds. No palpable organomegaly. MUSCULOSKELETAL: No joint swelling or deformity. EXTREMITIES: No cyanosis, clubbing, or pedal edema. NEUROLOGICAL: Gross neurological examination did not reveal any focal deficits. SKIN: No rashes. Assessment and Plan Plan: 1 chest pain: Appears to mostly [place] skeletal will ruled out acute coronary syndromes. My clinical suspicion is low for pulmonary embolism. VQ scan showed low probable T for pulmonary embolism patient will not be discharged on anticoagulation patient's symptomatology is consistent with musculoskeletal pain and there may be a competent of anxiety disorder as well patient will undergo stress test as an outpatient was evaluated by cardiology as well. -Leukocytosis secondary to make steroids steroids she received patient doesn't have any COPD will not require any more steroids doesn't have any pneumonia -History of DVT in the past which was precipitated DVT after her bilateral mastectomy for breast cancer which is in remission now -Hyperlipidemia -Hypertension -Hypothyroidism Patient Condition at Discharge: Stable Plan - Discharge Summary Discharge Rx Participant: No New Discharge Prescriptions: No Action Ubidecarenone [Co Q-10] 100 mg PO DAILY Atenolol [Tenormin] 12.5 mg PO DAILY [place]-3 Fatty Acids/Fish Oil [Fish Oil 1,000 mg Softgel] 1 cap PO DAILY Multivitamins, Thera [Multivitamin (formulary)] 1 tab PO DAILY Diclofenac Sodium 50 mg PO DAILY Simvastatin [Zocor] 20 mg PO HS Aspirin EC [Ecotrin Low Dose] 81 mg PO DAILY Levothyroxine Sodium [Levoxyl] 100 mcg PO DAILY Calcium Carbonate [Calcium] 1,200 mg PO DAILY Discharge Medication List Ubidecarenone [Co Q-10] 100 mg PO DAILY 05/16/14 [History] Atenolol [Tenormin] 12.5 mg PO DAILY 05/17/14 [History] Aspirin EC [Ecotrin Low Dose] 81 mg PO DAILY 07/19/18 [History] Calcium Carbonate [Calcium] 1,200 mg PO DAILY 07/19/18 [History] Diclofenac Sodium 50 mg PO DAILY 07/19/18 [History] Levothyroxine Sodium [Levoxyl] 100 mcg PO DAILY 07/19/18 [History] Multivitamins, Thera [Multivitamin (formulary)] 1 tab PO DAILY 07/19/18 [History ] [place]-3 Fatty Acids/Fish Oil [Fish Oil 1,000 mg Softgel] 1 cap PO DAILY [History] Simvastatin [Zocor] 20 mg PO HS 07/19/18 [History] Follow up Appointment(s)/Referral(s): Cleveland Lindo MD [Primary Care Provider] - 3 Days Patient Instructions/Handouts: Chest Pain (ED) Discharge Disposition: HOME SELF-CARE
== END 2018-07-21 11:02 | disposition home or self-care (01) | DRG 313 ==
LOC: EC 09:05 → 3SCARD 12:51
PROVIDERS: ADMIT Family Medicine; ATTEND Family Medicine
DX: R07.89 Other chest pain (principal); E03.9 Hypothyroidism, unspecified; E78.5 Hyperlipidemia, unspecified; F41.9 Anxiety disorder, unspecified; I10 Essential (primary) hypertension; R79.1 Abnormal coagulation profile; M19.90 Unspecified osteoarthritis, unspecified site; D72.829 Elevated white blood cell count, unspecified; T38.0X5A Adverse effect of glucocorticoids and synthetic analogues, initial encounter; Z90.710 Acquired absence of both cervix and uterus; Z90.13 Acquired absence of bilateral breasts and nipples; Z87.891 Personal history of nicotine dependence; Z86.718 Personal history of other venous thrombosis and embolism; Z85.3 Personal history of malignant neoplasm of breast; Z79.82 Long term (current) use of aspirin; Z79.890 Hormone replacement therapy; Z79.899 Other long term (current) drug therapy; Z88.5 Allergy status to narcotic agent; Z88.6 Allergy status to analgesic agent; Z91.041 Radiographic dye allergy status; Z91.040 Latex allergy status; Z80.3 Family history of malignant neoplasm of breast; Z82.49 Family history of ischemic heart disease and other diseases of the circulatory system; Z83.3 Family history of diabetes mellitus; Z83.49 Family history of other endocrine, nutritional and metabolic diseases; Y92.239 Unspecified place in hospital as the place of occurrence of the external cause
CPT/HCPCS: 36415; 71046; 71275; 78582; 80048; 80053; 80061; 82550; 82553; 83735; 84484; 85025; 85027; 85379; 85610; 85730; 93005; 93306; 94640; 96361; 96374; 96375; 99285

== ENCOUNTER → 2018-08-21 | Outpatient (CLI) | payer OTHER ==
--- NOTE | 2018-08-22 16:31 | BD ---
EXAMINATION TYPE: Axial Bone Density DATE OF EXAM: 08/21/2018 COMPARISON: 08/11/2016 CLINICAL HISTORY: Height: 61.5 IN Weight: 202 LBS FRAX RISK QUESTIONS: Secondary Osteoporosis: 3. Menopause before 45: YES AGE 36 PARTIAL HYST. RISK FACTORS HISTORY OF: History of Wrist Fracture: YES RONI WRIST When: AGE 17 Active: YES Postmenopausal woman: AGE 36 MEDICATIONS: Thyroid Medications: YES Which medication: LEVOTHYROXINE How Lon+ YEARS Additional Medications: CALCIUM, LEVOTHYROXINE, SIMVASTATIN, ASPIRIN, ATENOLOL, Additional History: BREAST CANCER EXAM MEASUREMENTS: Bone mineral densitometry was performed using the [employer] Digital [employer] System. Bone mineral density as measured about the Lumbar spine is: ----- L1-L4(G/cm2): 1.401 T Score Values are as follows: ----- L2: 1.9 ----- L3: 1.4 ----- L4: 2.2 ----- L1-L4: 1.8 Bone mineral density has: Increased 5.2% since study of: 08/11/2016 Bone mineral density about the R hip (g/cm2): 1.007 Bone mineral density about the L hip (g/cm2): 1.073 T Score values are as follows: -----R Neck: -0.2 -----L Neck: 0.3 -----R Total: 1.1 -----L Total: 1.1 Bone mineral density has: Decreased -0.4% since study of: 08/11/2016 IMPRESSION: Normal (Values between +1 and -1 indicate normal bone mass). Consider repeating this study in 5 year s or sooner if there is some new clinical indication. NOTE: T-SCORE=SD OF THE YOUNG ADULT MEAN.
== END | disposition home or self-care (01) ==
LOC: RADBDWWP 15:02
PROVIDERS: ATTEND Obstetrics & Gynecology
DX: Z13.820 Encounter for screening for osteoporosis (principal); N95.1 Menopausal and female climacteric states
CPT/HCPCS: 77080

== ENCOUNTER → 2018-09-20 | Outpatient (CLI) | payer OTHER ==
--- NOTE | 2018-09-20 11:03 | US ---
EXAMINATION TYPE: US pelvic complete DATE OF EXAM: 09/20/2018 COMPARISON: NONE CLINICAL HISTORY: C50.919 PERSONAL HX OF BREAST CA. TECHNIQUE: Transvaginal (TV). Transvaginal sonographic images were medically necessary to better assess the following anatomy: try to assess the ovaries Date of LMP: 2005 EXAM MEASUREMENTS: Uterus: Surgically absent cm Endometrial Stripe: Surgically absent Right Ovary: Not visualized Left Ovary: Not visualized 1. Uterus: surgically absent 2. Endometrium: Surgically absent 3. Right Ovary: not visualized 4. Left Ovary: not visualized 5. Bilateral Adnexa: no abnormality identified 6. Posterior cul-de-sac: no free fluid IMPRESSION: Limited exam.
== END | disposition home or self-care (01) ==
LOC: RADUSWWP 09:14
PROVIDERS: ATTEND Obstetrics & Gynecology
DX: C50.919 Malignant neoplasm of unspecified site of unspecified female breast (principal); Z85.3 Personal history of malignant neoplasm of breast
CPT/HCPCS: 76830

== ENCOUNTER → 2019-04-15 | Outpatient (CLI) | payer OTHER ==
--- NOTE | 2019-04-15 09:01 | US ---
EXAMINATION TYPE: US abdomen complete DATE OF EXAM: 04/15/2019 COMPARISON: NONE CLINICAL HISTORY: Gastroenteritis K52.9. RUQ and back pain EXAM MEASUREMENTS: Liver Length: 16.0 cm Gallbladder Wall: 0.2 cm CBD: 0.4 cm Spleen: 10.0 cm Right Kidney: 10.0 x 4.8 x 4.7 cm Left Kidney: 11.4 x 4.6 x 5.2 cm Pancreas: wnl Liver: wnl Gallbladder: wnl Evidence for sonographic Guy's sign: no CBD: wnl Spleen: wnl Right Kidney: wnl Left Kidney: wnl Upper IVC: wnl Abd Aorta: wnl The liver is homogenous. The intrahepatic portion of the IVC and proximal abdominal aorta are within normal limits. There is no evidence of cholelithiasis. Common bile duct is unremarkable. The visu alized portions of the pancreas are homogenous. The spleen is unremarkable. Kidneys are symmetric a nd free of hydronephrosis. No renal lesions are seen. IMPRESSION: Overall unremarkable abdominal ultrasound. No sonographic evidence of cholelithiasis nor acute cholecystitis. No hydronephrosis nor nephrolithiasis.
== END | disposition home or self-care (01) ==
LOC: RADUSMAIN 07:55
PROVIDERS: ATTEND Family Medicine
DX: K52.9 Noninfective gastroenteritis and colitis, unspecified (principal); Z88.5 Allergy status to narcotic agent
CPT/HCPCS: 76700